=== PATIENT | female | born 1990 | race Caucasian/White ===

== ENCOUNTER 2017-05-01 12:31 | Emergency (ER) | payer SELFPAY, MEDICAID ==
[2017-05-01 14:01] LABS: ADD MAN DIFF? NO
[2017-05-01 14:02] LABS: BASOPHILS % 0.5 % (0.0-2.0); EOSINOPHILS % 0.3 % (0.0-7.0); HEMATOCRIT 38.9 % (37.0-47.0); HEMOGLOBIN 13.3 g/dl (12.0-16.0); LYMPHOCYTES # 1.5 10^3/ul (0.8-2.9); LYMPHOCYTES % 26.7 % (15.0-51.0); MEAN CORPUSCULAR HEMOGLOBIN 29.8 pg (29.0-33.0); MEAN CORPUSCULAR HGB CONC 34.2 g/dl (32.0-37.0); MEAN CORPUSCULAR VOLUME 87.2 fl (82.0-101.0); MEAN PLATELET VOLUME 10.2 fl (7.4-10.4); MONOCYTE # 0.5 10^3/ul (0.3-0.9); MONOCYTES % 8.7 % (0.0-11.0); NEUTROPHIL # 3.7 10^3/ul (1.6-7.5); NEUTROPHILS % 63.6 % (39.0-77.0); PLATELET COUNT 227 10^3/UL (140-415); RED BLOOD COUNT 4.46 10^6/ul (4.20-5.40); RED CELL DISTRIBUTION WIDTH 12.4 % (11.5-14.5)
[2017-05-01 14:02] LABS: WHITE BLOOD COUNT 5.8 10^3/ul (4.8-10.8)
[2017-05-01 14:06] LABS: ADD UMIC YES; UR ASCORBIC ACID NEGATIVE (NEGATIVE); UR BILIRUBIN (Dip) NEGATIVE (NEGATIVE); UR BLOOD (Dip) 3+ mg/dL (NEGATIVE); UR CLARITY SLIGHTLY CLOUDY (CLEAR); UR COLOR YELLOW (YELLOW); UR GLUCOSE (Dip) NEGATIVE (NEGATIVE); UR KETONES (Dip) NEGATIVE (NEGATIVE); UR LEUKOCYTE ESTERASE (Dip) NEGATIVE Leu/ul (NEGATIVE); UR MUCUS FEW /HPF (NONE SEEN); UR NITRITE (Dip) NEGATIVE (NEGATIVE); UR RBC 0 /HPF (0-5); UR SPECIFIC GRAVITY (Dip) 1.023 (1.003-1.030); UR SQUAMOUS EPITHELIAL CELL FEW /HPF (FEW); UR TOTAL PROTEIN (Dip) NEGATIVE (NEGATIVE); UR UROBILINOGEN (Dip) NEGATIVE (NEGATIVE); UR WBC 3 /HPF (0-5)
== END 2017-05-01 14:48 | disposition home or self-care (01) ==
LOC: FTE 12:31
DX: O20.9 Hemorrhage in early pregnancy, unspecified (principal); R10.2 Pelvic and perineal pain; Z3A.01 Less than 8 weeks gestation of pregnancy
CPT/HCPCS: 36415; 76801; 76817; 81001; 82962; 84702; 85025; 86900; 86901; 99284-25

== ENCOUNTER 2017-05-13 22:59 | Emergency (ER) | payer MEDICAID, OTHER | END 2017-05-14 03:24 | disposition home or self-care (01) | LOC: FTE 22:59 | DX: O99.511 Diseases of the respiratory system complicating pregnancy, first trimester (principal); J00 Acute nasopharyngitis [common cold]; H65.01 Acute serous otitis media, right ear; O99.89 Other specified diseases and conditions complicating pregnancy, childbirth and the puerperium; Z3A.08 8 weeks gestation of pregnancy | CPT/HCPCS: 99283; Z7502 ==

== ENCOUNTER 2017-06-24 16:06 | Emergency (ER) | payer SELFPAY, MEDICAID | END 2017-06-24 20:45 | disposition left against medical advice (07) | LOC: FTE 16:06 | DX: Z53.21 Procedure and treatment not carried out due to patient leaving prior to being seen by health care provider (principal) ==

== ENCOUNTER 2017-08-01 18:16 | Emergency (ER) | payer MEDICAID ==
[2017-08-01 21:07] LABS: URINE BLOOD (Dip) POC Negative (NEGATIVE); URINE GLUCOSE (Dip) POC Negative (NEGATIVE); URINE KETONES (Dip) POC Negative (NEGATIVE); URINE LEUKOCYTE EST (Dip) POC Negative (NEGATIVE); URINE NITRITE (Dip) POC Negative (NEGATIVE); URINE TOTAL PROTEIN POC Negative (NEGATIVE)
[2017-08-01 21:07] LABS: URINE PH (Dip) POC 5.5 (5.0-8.5)
== END 2017-08-01 22:34 | disposition home or self-care (01) ==
LOC: FTE 18:16
DX: O20.9 Hemorrhage in early pregnancy, unspecified (principal); R10.2 Pelvic and perineal pain; Z3A.20 20 weeks gestation of pregnancy
CPT/HCPCS: 76805; 81003; 99284-25

== ENCOUNTER 2017-10-17 16:43 | Outpatient (CLI) | payer MEDICAID ==
[2017-10-17 19:51] LABS: ADD UMIC NO; UR ASCORBIC ACID NEGATIVE (NEGATIVE); UR BILIRUBIN (Dip) NEGATIVE (NEGATIVE); UR BLOOD (Dip) NEGATIVE (NEGATIVE); UR CLARITY CLEAR (CLEAR); UR COLOR STRAW (YELLOW); UR GLUCOSE (Dip) NEGATIVE (NEGATIVE); UR KETONES (Dip) NEGATIVE (NEGATIVE); UR LEUKOCYTE ESTERASE (Dip) NEGATIVE Leu/ul (NEGATIVE); UR NITRITE (Dip) NEGATIVE (NEGATIVE); UR SPECIFIC GRAVITY (Dip) 1.005 (1.003-1.030); UR TOTAL PROTEIN (Dip) NEGATIVE (NEGATIVE); UR UROBILINOGEN (Dip) NEGATIVE (NEGATIVE)
[2017-10-17 20:54] LABS: RUPTURE FETAL MEMBRANES NEGATIVE (NEGATIVE)
== END 2017-10-17 22:22 | disposition home or self-care (01) ==
LOC: OBT 16:43 → L-D 16:44 → OBT 22:22
DX: O26.899 Other specified pregnancy related conditions, unspecified trimester (principal); R30.0 Dysuria; O34.219 Maternal care for unspecified type scar from previous cesarean delivery; Z3A.00 Weeks of gestation of pregnancy not specified
CPT/HCPCS: 76818; 81003; 84112; 87086

== ENCOUNTER 2017-11-04 20:02 | Inpatient (IN) | payer MEDICAID ==
[2017-11-04 22:42] LABS: ADD MAN DIFF? NO
[2017-11-04 22:54] LABS: BASOPHILS % 0.3 % (0.0-2.0); EOSINOPHILS # 0.1 10^3/ul (0.0-0.5); EOSINOPHILS % 0.8 % (0.0-7.0); HEMATOCRIT 33.9 % (37.0-47.0); HEMOGLOBIN 11.1 g/dl (12.0-16.0); LYMPHOCYTES # 1.6 10^3/ul (0.8-2.9); LYMPHOCYTES % 23.9 % (15.0-51.0); MEAN CORPUSCULAR HEMOGLOBIN 29.4 pg (29.0-33.0); MEAN CORPUSCULAR HGB CONC 32.7 g/dl (32.0-37.0); MEAN CORPUSCULAR VOLUME 89.7 fl (82.0-101.0); MEAN PLATELET VOLUME 9.9 fl (7.4-10.4); MONOCYTE # 0.8 10^3/ul (0.3-0.9); NEUTROPHIL # 4.1 10^3/ul (1.6-7.5); NEUTROPHILS % 62.4 % (39.0-77.0); PLATELET COUNT 186 10^3/UL (140-415); RED BLOOD COUNT 3.78 10^6/ul (4.20-5.40)
[2017-11-04 22:54] LABS: WHITE BLOOD COUNT 6.6 10^3/ul (4.8-10.8)
[2017-11-04 23:07] LABS: ADD UMIC YES; UR ASCORBIC ACID 40 mg/dL (NEGATIVE); UR BACTERIA FEW /HPF (NONE SEEN); UR BILIRUBIN (Dip) NEGATIVE (NEGATIVE); UR BLOOD (Dip) 2+ mg/dL (NEGATIVE); UR CLARITY CLOUDY (CLEAR); UR COLOR YELLOW (YELLOW); UR GLUCOSE (Dip) 3+ mg/dL (NEGATIVE); UR KETONES (Dip) 1+ mg/dL (NEGATIVE); UR LEUKOCYTE ESTERASE (Dip) 2+ Leu/ul (NEGATIVE); UR MUCUS MODERATE /HPF (NONE SEEN); UR NITRITE (Dip) NEGATIVE (NEGATIVE); UR RBC 2 /HPF (0-5); UR SPECIFIC GRAVITY (Dip) 1.022 (1.003-1.030); UR SQUAMOUS EPITHELIAL CELL MANY /HPF (FEW); UR TOTAL PROTEIN (Dip) 1+ mg/dl (NEGATIVE); UR UROBILINOGEN (Dip) 1+ mg/dL (NEGATIVE); UR WBC 11 /HPF (0-5)
[2017-11-05] MEDS ORDERED: ACETAMINOPHEN 325 MG TAB PO
[2017-11-05] MEDS ORDERED: AL HYDROX/MG HYDROX/SIMETH 30 ML CUP PO
[2017-11-05] MEDS: PRENATAL VITAMIN PO (09:06)
== END 2017-11-05 13:00 | disposition home or self-care (01) | DRG 782 ==
LOC: OBT 20:02 → L-D 20:04 → PP1 11-05 01:10 → OBT 23:52 → L-D 23:52
DX: O46.93 Antepartum hemorrhage, unspecified, third trimester (principal); O60.03 Preterm labor without delivery, third trimester; Z3A.33 33 weeks gestation of pregnancy
CPT/HCPCS: 76815; 76817; 76818; 81001; 85025

== ENCOUNTER 2017-11-15 21:18 | Outpatient (CLI) | payer MEDICAID ==
[2017-11-15 22:43] LABS: ADD UMIC YES; UR ASCORBIC ACID NEGATIVE (NEGATIVE); UR BILIRUBIN (Dip) NEGATIVE (NEGATIVE); UR BLOOD (Dip) 2+ mg/dL (NEGATIVE); UR CLARITY CLEAR (CLEAR); UR COLOR STRAW (YELLOW); UR GLUCOSE (Dip) 1+ mg/dL (NEGATIVE); UR KETONES (Dip) NEGATIVE (NEGATIVE); UR LEUKOCYTE ESTERASE (Dip) NEGATIVE Leu/ul (NEGATIVE); UR NITRITE (Dip) NEGATIVE (NEGATIVE); UR RBC 0 /HPF (0-5); UR SPECIFIC GRAVITY (Dip) 1.004 (1.003-1.030); UR TOTAL PROTEIN (Dip) NEGATIVE (NEGATIVE); UR UROBILINOGEN (Dip) NEGATIVE (NEGATIVE); UR WBC 0 /HPF (0-5)
[2017-11-15] MEDS: TERBUTALINE 1 MG/ML INJ SC (22:50)
[2017-11-15 23:02] LABS: RUPTURE FETAL MEMBRANES NEGATIVE (NEGATIVE)
[2017-11-15] MEDS: LACTATED RINGER'S 1,000 ML IV (23:09)
[2017-11-16] MEDS: ACETAMINOPHEN 500 MG TAB PO (00:21)
[2017-11-16] MEDS: LACTATED RINGER'S 1,000 ML IV (00:21)
== END 2017-11-16 00:59 | disposition home or self-care (01) ==
LOC: OBT 11-16 00:59 → L-D 21:19
DX: O46.8X3 Other antepartum hemorrhage, third trimester (principal); Z3A.34 34 weeks gestation of pregnancy
CPT/HCPCS: 36415; 76815; 76817; 81001; 84112; 86900; 86901; 96360; 96372

== ENCOUNTER 2017-12-27 10:22 | Emergency (ER) | payer MEDICAID ==
[2017-12-27] MEDS: IBUPROFEN 600 MG TAB PO (11:15)
[2017-12-27] MEDS: AMOXICILLIN 500 MG CAP PO (11:15)
== END 2017-12-27 11:49 | disposition home or self-care (01) ==
LOC: FTE 10:22
DX: J02.9 Acute pharyngitis, unspecified (principal)
CPT/HCPCS: 99283; Z7502

== ENCOUNTER 2018-04-11 18:52 | Emergency (ER) | payer MEDICAID | END 2018-04-11 22:31 | disposition home or self-care (01) | LOC: FTE 18:52 | DX: J00 Acute nasopharyngitis [common cold] (principal); J04.0 Acute laryngitis; R40.2412 Glasgow coma scale score 13-15, at arrival to emergency department | CPT/HCPCS: 99282; Z7502 ==

== ENCOUNTER 2018-08-25 10:55 | Emergency (ER) | payer MEDICAID ==
[2018-08-25] MEDS ORDERED: LIDOCAINE 1% (MDV) 20 ML INJ SC (12:00)
[2018-08-25] MEDS ORDERED: CEFTRIAXONE 1 GM INJ IM (12:00)
[2018-08-25] MEDS ORDERED: CLINDAMYCIN 300 MG CAP PO (12:00)
[2018-08-25] MEDS ORDERED: HYDROCODONE/APAP (7.5/325) TAB PO (12:00)
[2018-08-25] MEDS: KETOROLAC 30 MG INJ IV (12:16)
[2018-08-25] MEDS: CLINDAMYCIN 600 MG/D5W (PMX) 50 ML IVPB (12:16)
[2018-08-25] MEDS: SOD CHLORIDE 0.9% 1,000 ML IV (12:57)
[2018-08-25] MEDS: ONDANSETRON 4 MG INJ IV (12:58)
[2018-08-25] MEDS: morphine 4 MG/ML VIAL IV (12:58)
[2018-08-25 13:12] LABS: ADD MAN DIFF? NO
[2018-08-25 13:14] LABS: BASOPHILS % 0.3 % (0.0-2.0); EOSINOPHILS % 0.4 % (0.0-7.0); HEMATOCRIT 39.2 % (37.0-47.0); HEMOGLOBIN 12.8 g/dl (12.0-16.0); LYMPHOCYTES # 1.7 10^3/ul (0.8-2.9); LYMPHOCYTES % 20.9 % (15.0-51.0); MEAN CORPUSCULAR HEMOGLOBIN 28.7 pg (29.0-33.0); MEAN CORPUSCULAR HGB CONC 32.7 g/dl (32.0-37.0); MEAN CORPUSCULAR VOLUME 87.9 fl (82.0-101.0); MEAN PLATELET VOLUME 10.2 fl (7.4-10.4); MONOCYTE # 0.6 10^3/ul (0.3-0.9); MONOCYTES % 7.8 % (0.0-11.0); NEUTROPHIL # 5.6 10^3/ul (1.6-7.5); NEUTROPHILS % 70.2 % (39.0-77.0); PLATELET COUNT 210 10^3/UL (140-415); RED BLOOD COUNT 4.46 10^6/ul (4.20-5.40); RED CELL DISTRIBUTION WIDTH 12.5 % (11.5-14.5)
[2018-08-25 13:20] LABS: ANION GAP 9 (5-13); BLOOD UREA NITROGEN 11 mg/dl (7-20); CALCIUM 9.7 mg/dl (8.4-10.2); CARBON DIOXIDE 26 mmol/L (21-31); CHLORIDE 105 mmol/L (97-110); CREATININE 0.68 mg/dl (0.44-1.00); Estimated GFR > 60 mL/min (>60); GLUCOSE 96 mg/dl (70-220); SODIUM 140 mmol/L (135-144)
[2018-08-25] MEDS: SOD CHLORIDE 0.9% 100 ML (13:50)
[2018-08-25] MEDS: IOHEXOL 300MG/ML 150 ML BTL (13:50)
== END 2018-08-25 16:12 | disposition home or self-care (01) ==
LOC: FTE 10:55
DX: L03.211 Cellulitis of face (principal); Z98.818 Other dental procedure status
CPT/HCPCS: 70491; 80048; 85025; 96361; 96365; 96375; 99285-25